=== PATIENT | female | born 1955 | race Caucasian/White ===

== ENCOUNTER → 2016-06-16 | Outpatient (CLI) | payer BC ==
[~2016-06-16] MED LIST: ACET-2723 PO; AMLO10TA2 PO; BISO1TAB30 PO; CALC600T86 PO; MULT-806 PO; VALS320T13 PO; [UNRECOGNIZED DRUG - CODE] PO
== END ==
LOC: WC.BC 09:27
DX: Z12.31 Encounter for screening mammogram for malignant neoplasm of breast (principal)
CPT/HCPCS: 77063; G0202